=== PATIENT | female | born 1970 | race Caucasian/White ===

== ENCOUNTER 2022-08-31 11:13 | Outpatient (CLI) | payer OTHER, SELFPAY ==
--- NOTE | 2022-08-31 | ECG_ITS ---
[facility] Test Date: 2022-08-31 Pat Name: Peggy Huston Department: Room: Gender: Female Gate Guard: : 1970 Requested By: Migel Galeas Order Number: [id number] [place] MD: Conrad Hensley M.D. Interpretive Statements NAME OF STUDY: TREADMILL STRESS TEST INDICATION: [Dyspnea on Exertion] EXERCISE DATA: The patient was exercised by Tobin protocol. Baseline heart rate was 95 beats per minute. Baseline blood pressure was 155/95 millimeters of mercury. Target heart rate was 141 beats per minute. Maximum heart rate achieved was 157, which was 111% of the target heart rate. Maximum blood pressure was 163/73 millimeters of mercury. Total exercise time was 6 minutes. Maximum METs achieved was 7. The reason for ending the test was maximal effort achieved. The patient complained of shortness of breath during the stress test, which then resolved at the end of the test. ELECTROCARDIOGRAM: BASELINE: Showed sinus rhythm, normal axis, no significant ST-T changes at the baseline noted. [] EXERCISE: At the peak exercise level, [] No significant ST-T changes suggestive of ischemia noted. [] RECOVERY: During the recovery period, heart rate dropped appropriately. No significant ST-T changes in the recovery suggestive of ischemia noted. [] CONCLUSION: 1. Exercise capacity fair 2. Heart rate response was appropriate 3. Symptoms not suggestive of ischemia. 4. Exercise stress test not suggestive of ischemia. Electronically Signed On 09-12-2022 15:09:20 CDT by Conrad Hensley M.D. [email or web address]
[2022-08-31 11:35] VITALS: BP 145/98; PULSE 99; BMI 42.5
== END 2022-08-31 11:14 | disposition home or self-care (01) ==
PROVIDERS: PCP Family Medicine; Visit Provider Family Medicine
DX: R06.00 Dyspnea, unspecified (principal)
CPT/HCPCS: 93017

== ENCOUNTER → 2022-09-01 08:32 | Outpatient (BNVA) | payer OTHER, SELFPAY | PROVIDERS: PCP Family Medicine; Visit Provider Podiatrist Foot & Ankle Surgery | DX: M21.612 Bunion of left foot (principal); M20.42 Other hammer toe(s) (acquired), left foot | CPT/HCPCS: 73630 ==

== ENCOUNTER 2022-09-03 14:18 | Outpatient (CLI) | payer OTHER, SELFPAY ==
--- NOTE | 2022-09-03 14:33 | MM_ITS ---
WS: [id number] BILATERAL 3D TOMOSYNTHESIS DIGITAL SCREENING MAMMOGRAPHY WITH CAD CLINICAL INFORMATION: SCREEN HISTORY: Screening mammogram. No current complaints. COMPARISON: May 27, 2021 TECHNIQUE: Bilateral CC and MLO views. FINDINGS: Scattered fibroglandular densities bilaterally. No suspicious focal mass, asymmetry, calcifications, or architectural distortion. No evidence of malignancy. MM/[place] [id number] IMPRESSION: BI-RADS: 1-Negative FOLLOW UP: 1 Year Follow-up Recommend return to annual screening mammography.
== END 2022-09-03 14:19 | disposition home or self-care (01) ==
LOC: RAD 14:23
PROVIDERS: PCP Family Medicine; Visit Provider Family Medicine
DX: Z12.31 Encounter for screening mammogram for malignant neoplasm of breast (principal)
CPT/HCPCS: 77063; 77067

== ENCOUNTER → 2022-10-07 11:34 | Outpatient (BNVA) | payer OTHER, SELFPAY | PROVIDERS: PCP Family Medicine; Visit Provider Nurse Practitioner | DX: N61.0 Mastitis without abscess (principal) | CPT/HCPCS: 87070; 87075; 87205 ==

== ENCOUNTER → 2022-11-03 09:54 | Outpatient (BNVA) | payer OTHER, SELFPAY | PROVIDERS: PCP Family Medicine; Visit Provider Nurse Practitioner | DX: M25.562 Pain in left knee (principal) | CPT/HCPCS: 73562 ==

== ENCOUNTER 2022-12-14 13:28 | Outpatient (CLI) | payer OTHER, SELFPAY ==
--- NOTE | 2022-12-14 13:46 | US_ITS ---
WS: [id number] ULTRASOUND LEFT BREAST HISTORY: N61.0 - Mastitis without abscess COMPARISON: 07/28/2018 and prior mammogram 09/03/2022 TECHNIQUE: 2-D and Doppler. Ultrasound is directed around the areolar for possible abscess secondary to mastitis. There are a few minimally dilated ducts but no collection or increased vascularity. US/US breast LT limited* [id number] IMPRESSION: BI-RADS: 2-Benign FOLLOW-UP: See Report Return to annual screening mammography.
== END 2022-12-14 13:29 | disposition home or self-care (01) ==
PROVIDERS: PCP Family Medicine; Visit Provider Nurse Practitioner
DX: N61.0 Mastitis without abscess (principal)
CPT/HCPCS: 76642

== ENCOUNTER → 2023-01-28 10:09 | Outpatient (BNVA) | payer OTHER, SELFPAY | PROVIDERS: PCP Family Medicine; Visit Provider Nurse Practitioner | DX: S86.912A Strain of unspecified muscle(s) and tendon(s) at lower leg level, left leg, initial encounter (principal); X58.XXXA Exposure to other specified factors, initial encounter | CPT/HCPCS: 73562 ==

== ENCOUNTER → 2023-02-15 10:02 | Outpatient (BNVA) | payer OTHER, SELFPAY | PROVIDERS: PCP Family Medicine; Visit Provider Nurse Practitioner | DX: R53.83 Other fatigue (principal); Z13.6 Encounter for screening for cardiovascular disorders | CPT/HCPCS: 80053; 80061; 82533; 82670; 84403; 84443; 85025 ==

== ENCOUNTER → 2023-02-21 11:07 | Outpatient (BNVA) | payer OTHER, SELFPAY | PROVIDERS: PCP Family Medicine; Visit Provider Nurse Practitioner | DX: R53.83 Other fatigue (principal) | CPT/HCPCS: 83001; 83002; 83036; 83525; 84144; 84439; 84481; 86140 ==

== ENCOUNTER 2023-03-03 15:34 | Outpatient (CLI) | payer OTHER, SELFPAY ==
--- NOTE | 2023-03-03 16:00 | MR_ITS ---
WS: [id number] MRI LEFT KNEE HISTORY: S86.912A - Strain of unspecified muscle(s) and tendon(s) ... COMPARISON: 01/28/2023 Anterior cruciate ligament: Intact. Posterior cruciate ligament: Intact. Medial collateral ligament: Small amount of fluid adjacent to the proximal MCL. No tear identified. Posterior lateral corner structures: Intact. Medial menisci: Intact. Normal signal, size and shape. Lateral meniscus: Intact. Normal signal, size and shape. Extensor mechanism: Normal distal quadriceps tendon. Scattered increased T2 signal in the patellar te ndon. Fluid and soft tissue: Small joint effusion. Small Stephen's cyst. Osseous and articular structures: Patellofemoral compartment: Mild narrowing of the patellofemoral joint space. Very minimal surface fr aying of the cartilage at the patellar eminence. There are also a few small subchondral cystic change s at the patellar eminence. Medial compartment: Mild narrowing of the medial compartment. Cartilage is intact. There is a very sm all amount of edema in the posterior nonweightbearing surface of the femoral condyle. Marrow edema as sociated with a 4.4 mm osteochondral lesion in in the posterior medial femoral condyle. This is also the area of the greatest amount of edema adjacent to the MCL. Lateral compartment: Mild narrowing. Mild surface fraying of the cartilage. IMPRESSION: 1. Small suprapatellar effusion and small Stephen's cyst. 2. No meniscal tear. 3. Mild narrowing of the patellofemoral joint with mild chondromalacia. Subchondral cystic changes at the patellar eminence. 4. Very mild MCL sprain. 5. Marrow edema nonweightbearing surface of the medial femoral condyle. Marrow edema is associated wi th a 4.4 mm osteochondral lesion along the posterior femoral condyle.
== END 2023-03-03 15:35 | disposition home or self-care (01) ==
LOC: RAD 15:35
PROVIDERS: PCP Family Medicine; Visit Provider Nurse Practitioner
DX: S86.912A Strain of unspecified muscle(s) and tendon(s) at lower leg level, left leg, initial encounter (principal); X58.XXXA Exposure to other specified factors, initial encounter; M25.462 Effusion, left knee; M71.22 Synovial cyst of popliteal space [Baker], left knee
CPT/HCPCS: 73721

== ENCOUNTER 2023-03-31 11:15 | Outpatient (CLI) | payer OTHER, SELFPAY | END 2023-03-31 11:16 | disposition home or self-care (01) | LOC: SPT 11:17 | PROVIDERS: PCP Family Medicine; Visit Provider Physician Assistant | DX: Z46.89 Encounter for fitting and adjustment of other specified devices (principal); M25.462 Effusion, left knee | CPT/HCPCS: 97760; L1812 ==

== ENCOUNTER 2023-04-15 06:00 | Outpatient (RCR) | payer OTHER, SELFPAY | END 2023-05-15 23:59 | disposition home or self-care (01) | LOC: WPT 06:00 | PROVIDERS: Visit Provider Physician Assistant | DX: S83.412D Sprain of medial collateral ligament of left knee, subsequent encounter (principal); X58.XXXD Exposure to other specified factors, subsequent encounter | CPT/HCPCS: 97110; 97161 ==

== ENCOUNTER 2023-05-16 06:00 | Outpatient (RCR) | payer OTHER, SELFPAY | END 2023-06-15 23:59 | disposition home or self-care (01) | LOC: WPT 06:00 | PROVIDERS: Visit Provider Physician Assistant | DX: S83.412D Sprain of medial collateral ligament of left knee, subsequent encounter (principal); X58.XXXD Exposure to other specified factors, subsequent encounter | CPT/HCPCS: 97110; 97112; 97530 ==

== ENCOUNTER → 2023-11-21 11:21 | Outpatient (BNVA) | payer OTHER, SELFPAY | PROVIDERS: PCP Nurse Practitioner Family; Visit Provider Physician Assistant | DX: M23.307 Other meniscus derangements, unspecified meniscus, left knee; M25.562 Pain in left knee; M25.561 Pain in right knee | CPT/HCPCS: 73560; 73565 ==

== ENCOUNTER 2024-01-18 11:00 | Outpatient (CLI) | payer OTHER, SELFPAY ==
--- NOTE | 2024-01-18 10:40 | MM_ITS ---
WS: [id number] BILATERAL SCREENING DIGITAL TOMOSYNTHESIS MAMMOGRAM WITH CAD HISTORY: Z12.39 - Encounter for other screening for malignant neop... COMPARISON: 09/03/2022, 05/27/2021 Bilateral CC and MLO views with tomosynthesis and synthetic mammography submitted. Computer aided det ection analyzed. Breast composition: There are scattered areas of fibroglandular density. No suspicious masses, microc alcifications or architectural distortion. There are few scattered calcifications which are benign in the RIGHT breast. MM/[place] [id number] IMPRESSION: BI-RADS: 2 - Benign. FOLLOW UP: 1 Year Follow-up
== END 2024-01-18 11:01 | disposition home or self-care (01) ==
LOC: MOBLMAM 11:05
PROVIDERS: PCP Nurse Practitioner Family; Visit Provider Nurse Practitioner Family
DX: Z12.31 Encounter for screening mammogram for malignant neoplasm of breast (principal); R92.323 Mammographic fibroglandular density, bilateral breasts; R92.1 Mammographic calcification found on diagnostic imaging of breast
CPT/HCPCS: 77063; 77067

== ENCOUNTER → 2024-01-25 10:42 | Outpatient (BNVA) | payer OTHER, SELFPAY | PROVIDERS: PCP Nurse Practitioner Family; Visit Provider Nurse Practitioner Family | DX: Z13.6 Encounter for screening for cardiovascular disorders (principal); Z12.4 Encounter for screening for malignant neoplasm of cervix; Z79.899 Other long term (current) drug therapy; E83.42 Hypomagnesemia; N84.1 Polyp of cervix uteri | CPT/HCPCS: 80053; 80061; 81003; 82306; 83036; 84443; 85025; 87070; 87205; 87624 ==

== ENCOUNTER 2024-04-03 08:15 | Day surgery (SDC) | payer OTHER, SELFPAY ==
[2024-04-03 08:32] VITALS: BP 134/84; PULSE 68; RESP 18; TEMP 36.1; O2SAT 99; BMI 33.3
--- NOTE | 2024-04-03 08:52 | P.ANESASSM_ITS ---
Pre-Anesthetic Assessment Height/Weight: Height 1.63 m Weight 87.997 kg Temp Pulse Resp BP Pulse Ox O2 Del Method 97 F L 68 18 134/84 99 Room Air 04/03/24 08:32 04/03/24 08:32 04/03/24 08:32 04/03/24 08:32 04/03/24 08:32 04/03/24 08:32 Preop Diagnosis: Screening Operation Date: 04/03/24 09:15 Proposed Procedures p Colonoscopy 03143, G0105, Z12.11(Not Applicable) - Star Demarco MD Familial anesthetic complications: N/V Was Beta Deng taken within 24 hours: N/A Was Clonidine taken within 24 hours: N/A Last intake: Intake Last Liquid Date 04/02/24 Last Liquid Time 22:00 Last Solid Date 04/01/24 Last Solid Time 18:00 Social Alcohol (Occ.) and No tobacco Exam alert, oriented x 3, clear to auscultation bilaterally and regular rate & rhythm Airway Submandibular: within normal limits Cervical ROM: within normal limits Mallampati: Class II Dentition: full Comments: Comments: Broken tooth bottom right History/ROS No significant history except as noted and No significant complaints Pulmonary None reported CV/HEM None reported CONCLUSION: 1. Exercise capacity fair 2. Heart rate response was appropriate 3. Symptoms not suggestive of ischemia. 4. Exercise stress test not suggestive of ischemia. Hx kidney stones Hepatic None reported GI Gastroesophageal Reflux Disease (Well controlled with meds, none this morning) and Hiatal Hernia Metabolic Thyroid Disease Musc/skel Lower Back Pain, Osteoarthritis/DJD, Rheumatoid Arthritis and Weakness (Right side weaker, still goes to the gym) Neuropsych Depression and Neuropathy Anesthetic Plan ASA status: 2 Anesthesia: Anesthesia Evaluation, General and MAC Risk of > 500 ml blood loss (7ml/kg in children): No Medications/Allergies Home Medications Medication Instructions Recorded Confirmed Last Taken Type tizanidine 2 mg tablet 2 mg PO PRN PRN Muscle Spasm 09/01/22 03/29/24 Unknown History Hinged Knee Brace #1 ea 03/31/23 01/27/24 04/01/24 Rx antiarthritic combination no.2 900 900 mg PO DAILY 03/31/23 03/29/24 04/01/24 History mg tablet (glucosamine-chondroitin) biotin 10,000 mcg chewable tablet 10,000 mcg PO DAILY 03/31/23 03/29/24 04/01/24 History (Hair, Skin and Nails (biotin)) esterified estrogens 0.625 mg 0.9375 mg PO DAILY 03/31/23 03/29/24 04/01/24 History tablet magnesium oxide 500 mg capsule 500 mg PO DAILY 03/31/23 03/29/24 04/01/24 History progesterone micronized 100 mg 100 mg PO QAM 03/31/23 03/29/24 04/01/24 History capsule spironolactone 25 mg tablet 25 mg PO DAILY 03/31/23 03/29/24 04/01/24 History vitamin E (dl, acetate) 45 mg (100 184 mg PO DAILY 03/31/23 03/29/24 04/01/24 History unit) capsule semaglutide 0.25 mg or 0.5 mg (2 0.25 - 0.5 mg SUBCUT .WEEKLY 06/08/23 03/29/24 03/23/24 History mg/3 mL) subcutaneous pen injector (Ozempic) cholecalciferol (vitamin D3) 125 125 mcg PO DAILY 11/21/23 03/29/24 04/01/24 History mcg (5,000 unit) capsule magnesium citrate 100 mg capsule 100 mg PO DAILY 11/21/23 03/29/24 04/01/24 History meloxicam 15 mg tablet 15 mg PO DAILY 11/21/23 03/29/24 04/01/24 History thyroid (pork) 60 mg tablet ([employer] 60 mg PO DAILY 11/21/23 03/29/24 04/01/24 History Thyroid) vitamin K2 90 mcg capsule 90 mcg PO DAILY 11/21/23 03/29/24 04/01/24 History bupropion HCl 200 mg tablet,12 hr 200 mg PO BID 90 days #180 tabs 01/04/24 03/29/24 04/01/24 Rx sustained-release pantoprazole 40 mg tablet,delayed 40 mg PO DAILY 90 days #90 tabs 01/04/24 03/29/24 04/01/24 Rx release (Protonix) epinephrine 0.3 mg/0.3 mL 0.3 mg (0.3 mL) IM Q10M PRN 01/27/24 03/29/24 04/01/24 Rx injection, auto-injector (EpiPen anaphylaxis #2 ea 2-Hussein) metformin 500 mg tablet 500 mg PO TID 01/27/24 03/29/24 04/01/24 History prasterone (dhea) 10 mg tablet 10 mg PO DAILY 01/27/24 03/29/24 04/01/24 History Allergies Allergy/AdvReac Type Severity Reaction Status Date / Time venom-wasp Allergy Intermediate swelling Verified 03/29/24 08:37 [facility] Anesthesia Medical History (Updated 01/27/24 @ 13:26 by SANTIAGO Lawson) Allergic reaction Well woman exam Polyp at cervical os Vaginal discharge Cervical cancer screening Colon cancer screening Postmenopausal Hypothyroid Anxiety and depression GERD (gastroesophageal reflux disease) Hypomagnesemia Medication management Encounter for screening for cardiovascular disorders Surgical History (Updated 01/27/24 @ 12:23 by Star Demarco MD) Hx of colonoscopy with polypectomy 5 year M[facility] View- Chandrakant Family History (Updated 01/27/24 @ 11:37 by MARTIR Zamudio) Grandmother Breast cancer Mother Amyloid kidney Father Cancer prostate, skin, colon cancer, bladder Social History Smoking and tobacco/nicotine status: former use of tobacco/nicotine Alcohol intake: current Alcohol intake frequency: holidays/special occasions only Data Anesthesia Cardiac Studies: No Data to Display
[2024-04-03] MEDS: sodium chloride 0.9% 1,000 ML 30 ML IV (08:54)
[2024-04-03 08:58] LABS: Glucose Point of Care 74 mg/dL (70-110)
--- NOTE | 2024-04-03 09:19 | W.PM.OPSFHP ---
Same Day Surgery H&P Indication for Procedure/HPI DATE OF PROCEDURE: April 03, 2024 CHIEF COMPLAINT/INDICATIONFOR SURGICAL PROCEDURE: screening colonoscopy PREOP DIAGNOSIS: Screening PLANNED PROCEDURE: Operation Date: 04/03/24 09:15 Proposed Procedures p Colonoscopy 35832, G0105, Z12.11(Not Applicable) - Star Demarco MD Medications/Allergies* Home Medications Medication Instructions Recorded Confirmed Type tizanidine 2 mg tablet 2 mg PO PRN PRN Muscle Spasm 09/01/22 03/29/24 History antiarthritic combination no.2 900 900 mg PO DAILY 03/31/23 03/29/24 History mg tablet (glucosamine-chondroitin) biotin 10,000 mcg chewable tablet 10,000 mcg PO DAILY 03/31/23 03/29/24 History (Hair, Skin and Nails (biotin)) esterified estrogens 0.625 mg 0.9375 mg PO DAILY 03/31/23 03/29/24 History tablet magnesium oxide 500 mg capsule 500 mg PO DAILY 03/31/23 03/29/24 History progesterone micronized 100 mg 100 mg PO QAM 03/31/23 03/29/24 History capsule spironolactone 25 mg tablet 25 mg PO DAILY 03/31/23 03/29/24 History vitamin E (dl, acetate) 45 mg (100 184 mg PO DAILY 03/31/23 03/29/24 History unit) capsule semaglutide 0.25 mg or 0.5 mg (2 0.25 - 0.5 mg SUBCUT .WEEKLY 06/08/23 03/29/24 History mg/3 mL) subcutaneous pen injector (Ozempic) cholecalciferol (vitamin D3) 125 125 mcg PO DAILY 11/21/23 03/29/24 History mcg (5,000 unit) capsule magnesium citrate 100 mg capsule 100 mg PO DAILY 11/21/23 03/29/24 History meloxicam 15 mg tablet 15 mg PO DAILY 11/21/23 03/29/24 History thyroid (pork) 60 mg tablet ([employer] 60 mg PO DAILY 11/21/23 03/29/24 History Thyroid) vitamin K2 90 mcg capsule 90 mcg PO DAILY 11/21/23 03/29/24 History metformin 500 mg tablet 500 mg PO TID 01/27/24 03/29/24 History prasterone (dhea) 10 mg tablet 10 mg PO DAILY 01/27/24 03/29/24 History Allergies/Adverse Reactions Allergy/AdvReac Type Severity Reaction Status Date / Time venom-wasp Allergy Intermediate swelling Verified 03/29/24 08:37 Current Medications: Generic Name Dose Route Start Last Admin Trade Name Freq PRN Reason Stop Dose Admin Sodium Chloride 1,000 mls @ 30 mls/hr 04/03/24 08:30 04/03/24 08:54 Sodium Chloride 0.9% IV 04/04/24 08:29 30 mls/hr .Q24H LISA Administration Pertinent History/Comorbid Conditions* Medical History (Updated 01/27/24 @ 13:26 by SANTIAGO Lawson) Allergic reaction Well woman exam Polyp at cervical os Vaginal discharge Cervical cancer screening Colon cancer screening Postmenopausal Hypothyroid Anxiety and depression GERD (gastroesophageal reflux disease) Hypomagnesemia Medication management Encounter for screening for cardiovascular disorders Surgical History (Updated 01/27/24 @ 12:23 by Star Demarco MD) Hx of colonoscopy with polypectomy 5 year Mtn View- Chandrakant Family History (Updated 01/27/24 @ 11:37 by MARTIR Zamudio) Amyloid kidney Mother Breast cancer Grandmother Cancer Father prostate, skin, colon cancer, bladder Social History Smoking and tobacco/nicotine status: former use of tobacco/nicotine Alcohol intake: current Alcohol intake frequency: holidays/special occasions only Pertinent Exam Findings alert, oriented x 3, clear to auscultation bilaterally, regular rate & rhythm and procedure specific exam findings Abdomen soft, nt, nd Recommendations Surgery/Procedure today Coding Level of Care Code Acute Code for Chg Svetlana
[2024-04-03 10:35] VITALS: BP 120/77; PULSE 87; RESP 16; TEMP 36.2; O2SAT 94
[2024-04-03 10:46] VITALS: BP 112/78; PULSE 90; RESP 16; O2SAT 96
--- NOTE | 2024-04-03 11:15 | ANE.PACU2 ---
Inpatient post-anesthesia follow up: Airway intact: Yes Vital signs: Temperature 97.2 F Pulse Rate 90 Respiratory Rate 16 Blood Pressure 112/78 Pulse Oximetry 96 Oxygen Delivery Me thod Room Air Oxygen Flow Rate Fraction of Inspir ed Oxygen Hydration adequate: Yes Nausea and vomiting: No Pain level: 1 Mental status: Baseline
== END 2024-04-03 11:15 | disposition home or self-care (01) ==
PROVIDERS: PCP Nurse Practitioner Family; Visit Provider Student in an Organized Health Care Education/Training Program
PROC: 0DJD8ZZ Inspection of Lower Intestinal Tract, Via Natural or Artificial Opening Endoscopic (ICD-10-PCS; CPT 45378; principal; 2024-04-03 09:15)
DX: Z12.11 Encounter for screening for malignant neoplasm of colon (principal); E03.9 Hypothyroidism, unspecified; K21.9 Gastro-esophageal reflux disease without esophagitis; Z87.891 Personal history of nicotine dependence; M06.9 Rheumatoid arthritis, unspecified
CPT/HCPCS: 36416; 45378; 82962; J2704; J7030

== ENCOUNTER 2025-02-05 12:23 | Outpatient (CLI) | payer OTHER, SELFPAY ==
--- NOTE | 2025-02-05 12:20 | MM_ITS ---
WS: [id number] BILATERAL 3D TOMOSYNTHESIS DIGITAL SCREENING MAMMOGRAPHY WITH CAD CLINICAL INFORMATION: SCREENING HISTORY: Screening mammogram. No current complaints. COMPARISON: 2023 TECHNIQUE: Bilateral CC and MLO views. FINDINGS: Scattered fibroglandular densities bilaterally. No suspicious focal mass, asymmetry, calcifications, or architectural distortion. No evidence of malignancy. Lucent centered calcification RIGHT breast MM/MM scr BI tomosynthesis [id number] IMPRESSION: DENSITY: There are scattered areas of fibroglandular density. BI-RADS: 2 - Benign. FOLLOW UP: 1 Year Follow-up Recommend return to annual screening mammography.
== END 2025-02-05 12:24 | disposition home or self-care (01) ==
LOC: MOBLMAM 12:25
PROVIDERS: PCP Nurse Practitioner Family; Visit Provider Nurse Practitioner Family
DX: Z12.31 Encounter for screening mammogram for malignant neoplasm of breast (principal); R92.323 Mammographic fibroglandular density, bilateral breasts; R92.8 Other abnormal and inconclusive findings on diagnostic imaging of breast
CPT/HCPCS: 77063; 77067

== ENCOUNTER → 2025-02-12 11:22 | Outpatient (BNVA) | payer OTHER, SELFPAY | PROVIDERS: PCP Nurse Practitioner Family; Visit Provider Nurse Practitioner Family | DX: E03.9 Hypothyroidism, unspecified (principal); K21.9 Gastro-esophageal reflux disease without esophagitis; E83.42 Hypomagnesemia; Z79.899 Other long term (current) drug therapy; R31.9 Hematuria, unspecified; R39.89 Other symptoms and signs involving the genitourinary system; Z80.52 Family history of malignant neoplasm of bladder; Z98.51 Tubal ligation status; Z98.890 Other specified postprocedural states | CPT/HCPCS: 80053; 80061; 81003; 82306; 83036; 83735; 84443; 85025; 87086; 88112 ==

== ENCOUNTER → 2025-02-27 09:10 | Outpatient (BNVA) | payer OTHER, SELFPAY | PROVIDERS: PCP Nurse Practitioner Family; Visit Provider Podiatrist Foot & Ankle Surgery | DX: M20.12 Hallux valgus (acquired), left foot (principal); M76.62 Achilles tendinitis, left leg; M77.8 Other enthesopathies, not elsewhere classified | CPT/HCPCS: 73630 ==